=== PATIENT | female | born 1975 | race Caucasian/White ===

== ENCOUNTER 2016-08-17 09:03 | Outpatient (CLI) | payer OTHER | END 2016-08-17 09:04 | disposition home or self-care (01) | LOC: NC 09:03 | PROVIDERS: ATTEND Family Medicine | DX: K21.0 Gastro-esophageal reflux disease with esophagitis (principal); Z71.3 Dietary counseling and surveillance; Z68.27 Body mass index [BMI] 27.0-27.9, adult ==